=== PATIENT | female | born 1950 | race Caucasian/White ===

== ENCOUNTER → 2016-11-29 | Outpatient (CLI) | payer MEDICARE, OTHER ==
[~2016-11-29] MED LIST: AFRIN15 M1 INH; BROMFED DM PO; DYAZIDE 37.5/251 CAP PO; KCL PO; LIPITOR PO; LIPITOR20 MG PO; PRILOSEC PO; PYRIDIUM PO; TRIAMTERENE/HCTZ PO; VITAL-D RX TABL1 TAB PO; VITAMIN D2000 UNI1 PO; VITAMIN E200 UNI1 PO; ZITHROMAX PO
--- NOTE | ~2016-11-29 | MY11 ---
[facility]. [facility] A Service of [facility] RADIOLOGY TEXT RESULTS PATIENT: MARIELA MERINO LOCATION: [facility] : 52 UNIT #: [id number] AGE: [address]: JORDYN NEWELL MD SEX: F ORDER DR: [id number] [address] [address] [id number] O MR#: [id number] Acc #: [id number] NAME: MARIELA MERINO : 1950 SEX: F STUDY DATE/TIME: 11/29/2016 11:59 UNIT: [facility] ROOM: STUDY DESCRIPTION: MY Mammogram Screening Dig Oleg Attending Physician: Jordyn Newell M.D. Referring Physician: Jordyn Newell M.D. Ordering Physician: Jordyn Newell M.D. Primary Care Physician: Jordyn Newell M.D. MEDICAL IMAGING REPORT This report is preliminary unless electronic signature is present. EXAM Digital screening mammogram, 11/29/2016 HISTORY 66-year-old woman no risk elevation. Annual screening. COMPARISON 09/06/2009, 12/27/2010, 06/03/2012, 11/13/2015 FINDINGS Digital imaging of each breast was completed utilizing screening protocol. Review includes FDA-approved CAD device. The breast parenchyma is dense and somewhat heterogeneous with nodular distribution in each breast. Subareolar duct prominence is also noted bilaterally. I see no suspicious mass characteristics and no interval occurring microcalcifications or architectural disturbance. IMPRESSION Stable benign mammogram. Annual screening recommended. Patients over the age of 40 are entered into a reminder system with target due date for the next mammogram. A result letter will also be sent to the patient. BIRADS: 2 Benign Finding Dictated by... Neeraj De La Cruz M.D. THIS IS AN ELECTRONICALLY VERIFIED REPORT Neeraj De La Cruz M.D. at 11/29/2016 2:59 PM Frank [facility] A Service [facility] RADIOLOGY TEXT RESULTS PATIENT: MARIELA MERINO LOCATION: [facility] : 52 UNIT #: [id number] AGE: [address]: JORDYN NEWELL MD SEX: F ORDER DR: TD: 11/29/2016 12:53 JOB #: [id number] MEDICAL IMAGING REPORT Page 1 of 1
== END | disposition home or self-care (01) ==
LOC: SMAM 11:25
DX: Z12.31 Encounter for screening mammogram for malignant neoplasm of breast (principal); I10 Essential (primary) hypertension
CPT/HCPCS: G0202